=== PATIENT | male | born 1960 | race Caucasian/White ===

== ENCOUNTER 2020-04-10 09:47 | Day surgery (SDC) | payer BC ==
[~2020-04-10 09:47] MED LIST: LACTATED RINGERS 1,000 ML IV SCH; LIDOCAINE 1% (10MG/ML) FOR IV START INTRADERMA PRN
[2020-04-10 10:11] VITALS: TEMP 97.1
[2020-04-10] MEDS ORDERED: PROPOFOL 10 MG/ML 20 ML VIAL IV ONE (11:20)
--- NOTE | 2020-04-10 11:42 | P.OP ---
Date of Procedure: 04/10/20 Preoperative Diagnosis: Screening colonoscopy Postoperative Diagnosis: Mild diverticulosis Procedure(s) Performed: Colonoscopy Anesthesia: AUGUSTIN Surgeon: Ronald Celestin Pathology: none sent Condition: stable Disposition: PACU Description of Procedure: The patient's placed on the endoscopy table in the lateral position. He received IV sedation. Digital rectal exam is performed which revealed no abnormalities. The flexible colonoscope was then placed patient anus passed throughout the entire colon. The ileocecal valve was visualized. Cecum, ascending and transverse colon appeared normal. In the descending and sigmoid colon there is mild diverticulosis. The scope was then brought back the rectum and this appeared normal. Scope was withdrawn for patient.
--- NOTE | 2020-04-10 11:42 | P.GSHP ---
History of Present Illness H&P Date: 04/10/20 Chief Complaint: Screen colonoscopy 's is a 51-year-old male who presents today for screening colonoscopy. Patient denies any significant GI contents. Past Medical History Past Medical History: Hyperlipidemia, Hypertension History of Any Multi-Drug Resistant Organisms: None Reported Past Surgical History: Hernia Repair Past Anesthesia/Blood Transfusion Reactions: No Reported Reaction Smoking Status: Current every day smoker Medications and Allergies Home Medications Medication Instructions Recorded Confirmed Type Atorvastatin Calcium [Lipitor] 20 mg PO HS 04/06/20 04/06/20 History Losartan Potassium 100 mg PO HS 04/06/20 04/06/20 History Multivitamins, Thera [Multivitamin 1 tab PO DAILY 04/06/20 04/06/20 History (formulary)] [place]-3 Fatty Acids/Fish Oil [Fish 1 each PO DAILY 04/06/20 04/06/20 History Oil 1,000 mg Softgel] hydroCHLOROthiazide 25 mg PO DAILY 04/06/20 04/06/20 History Allergies Allergy/AdvReac Type Severity Reaction Status Date / Time No Known Allergies Allergy Verified 04/06/20 16:02 Surgical - Exam Vital Signs Temp Pulse Resp BP Pulse Ox 97.1 F L 74 18 150/86 98 04/10/20 10:09 04/10/20 10:09 04/10/20 10:09 04/10/20 10:09 04/10/20 10:09 - General well developed, well nourished, no distress - Eyes PERRL - ENT normal pinna - Neck no masses - Respiratory normal expansion - Cardiovascular Rhythm: regular - Abdomen Abdomen: soft, non tender Assessment and Plan Assessment: We'll perform screening colonoscopy
[2020-04-10 11:57] VITALS: BP 123/77; PULSE 70; RESP 14
== END 2020-04-10 12:12 ==
LOC: ORWHC2ENDO 09:47
PROVIDERS: ATTEND Surgery
DX: Z12.11 Encounter for screening for malignant neoplasm of colon (principal); K57.30 Diverticulosis of large intestine without perforation or abscess without bleeding; E78.5 Hyperlipidemia, unspecified; I10 Essential (primary) hypertension; Z98.890 Other specified postprocedural states; Z97.2 Presence of dental prosthetic device (complete) (partial); F17.210 Nicotine dependence, cigarettes, uncomplicated; Z79.899 Other long term (current) drug therapy
CPT/HCPCS: J2704; G0121

== ENCOUNTER → 2021-04-07 | Outpatient (CLI) | payer BC ==
--- NOTE | 2021-04-08 07:48 | CTL ---
EXAMINATION TYPE: CT Low Dose Lung DATE OF EXAM ORDERED: 04/07/2021 HISTORY: Long-term tobacco use. Lung cancer screening CT DLP: 123.[address] CTDI: 3.4 mGy Automated exposure control for dose reduction was used. SCREENING VISIT: Baseline COMPARISON: None TECHNIQUE: Low dose computed tomography scan was performed through the chest at 1 mm thick sections a nd reconstructed images in multiple planes at 1 mm and [address] DIAGNOSTIC QUALITY: Satisfactory FINDINGS: LUNG NODULES: Present, detailed below: There is 4.2 x 3.8 mm peripheral right upper lobe nodule axial image 99. Few additional scattered micronodules. No greater than 5 mm noncalcified nodules. LUNGS: COPD: Severity: Mild to moderate Fibrosis: Severity: None Lymph nodes: No greater than 1 cm Other findings: Ascending aorta measures up to 3.7 cm in diameter axial image 30 RIGHT PLEURAL SPACE: Effusion: None Calcification: None Thickening: None Pneumothorax: None LEFT PLEURAL SPACE: Effusion: None Calcification: None Thickening: None Pneumothorax: None HEART: Heart Size: Normal Coronary calcification: Mild to moderate Pericardial effusion: None OTHER FINDINGS: Upper abdomen: None Bony thorax: Mild to moderate multilevel spurring Supraclavicular region: None Other: None IMPRESSION: Mild to moderate emphysematous change with few scattered small nodules up to [address] LUNG RAD AND CT CHEST RECOMMENDATION: Lung-Rad 2 Benign Appearance or Behavior: Continue annual sc reening with LDCT in 12 months. S Modifier (other clinically significant findings): None
== END | disposition home or self-care (01) ==
LOC: RADCTMAIN 18:18
PROVIDERS: ATTEND Family Medicine
DX: J43.9 Emphysema, unspecified (principal)
CPT/HCPCS: 71271

== ENCOUNTER → 2022-05-18 | Outpatient (CLI) | payer BC ==
--- NOTE | 2022-05-19 06:45 | CTL ---
EXAMINATION TYPE: CT Low Dose Lung DATE OF EXAM ORDERED: 05/18/2022 HISTORY: Long-term tobacco use. Lung cancer screening CT DLP: 138.[address] CTDI: 3.7 mGy Automated exposure control for dose reduction was used. SCREENING VISIT: First study after baseline COMPARISON: Prior study April 07, 2021 TECHNIQUE: Low dose computed tomography scan was performed through the chest at 1 mm thick sections a nd reconstructed images in multiple planes at 1 mm and [address] DIAGNOSTIC QUALITY: Satisfactory FINDINGS: LUNG NODULES: Present, detailed below: Few scattered small nodules, some reference nodules noted as detailed below. Stable 6 x 3 mm right mid lung nodule along the fissure axial image 144. Stable 4 mm peripheral right upper lobe nodule axial image 99. No significant new or enlarging greater than 5 mm pulmonary nodules. LUNGS: COPD: Severity: Mild Fibrosis: Severity: None Lymph nodes: None Other findings: None RIGHT PLEURAL SPACE: Effusion: None Calcification: None Thickening: None Pneumothorax: None LEFT PLEURAL SPACE: Effusion: None Calcification: None Thickening: None Pneumothorax: None HEART: Heart Size: Normal Coronary Calcification: Mild to moderate Pericardial Effusion: None OTHER FINDINGS: Upper abdomen: None Bony thorax: Mild multilevel spurring Supraclavicular region: None Other: None IMPRESSION: No significant new or enlarging greater than [address] LUNG RAD AND CT CHEST RECOMMENDATION: Lung-Rad 2 Benign Appearance or Behavior: Continue annual sc reening with LDCT in 12 months. S Modifier (other clinically significant findings): None
== END | disposition home or self-care (01) ==
LOC: RADCTMAIN 18:40
PROVIDERS: ATTEND Family Medicine
DX: Z12.2 Encounter for screening for malignant neoplasm of respiratory organs (principal); F17.210 Nicotine dependence, cigarettes, uncomplicated
CPT/HCPCS: 71271

== ENCOUNTER → 2023-05-19 | Outpatient (CLI) | payer BC ==
--- NOTE | 2023-05-21 09:39 | CTL ---
EXAMINATION TYPE: CT Low Dose Lung DATE OF EXAM ORDERED: 05/19/2023 HISTORY: Smoker. Lung cancer screening CT DLP: 99.3 mGycm Automated exposure control for dose reduction was used. SCREENING VISIT: Subsequent COMPARISON: 05/18/2022 TECHNIQUE: Low dose computed tomography scan was performed through the chest at 1 mm thick sections a nd reconstructed images in the coronal plane at [address] DIAGNOSTIC QUALITY: Satisfactory FINDINGS: LUNG NODULES: None. 1. Punctate density in the periphery of the right upper lateral lung field, series 4 image 124. This is less distinct than prior. 2. Stable 0.6 x 0.3 cm nodule along the right major fissure. Image 167 LUNGS: COPD: Severity: None Fibrosis: Severity: None Lymph nodes: None Other findings: None RIGHT PLEURAL SPACE: Effusion: None Calcification: None Thickening: None Pneumothorax: None LEFT PLEURAL SPACE: Effusion: None Calcification: None Thickening: None Pneumothorax: None HEART: Heart Size: Normal Coronary calcification: Mild Pericardial effusion: None OTHER FINDINGS: Upper abdomen: Normal Bony thorax: Normal Supraclavicular region: Normal Other: Ascending thoracic aorta and main pulmonary arteries 3.6 cm. Main pulmonary artery the bifurca tion is 2.8 cm. IMPRESSION: 1. No suspicious changes for primary or metastatic neoplasm FOLLOW UP CT CHEST RECOMMENDATION: Low-dose CT chest one year CT LUNG RAD: Lung-Rad 1 Negative
== END | disposition home or self-care (01) ==
LOC: RADCTMAIN 18:47
PROVIDERS: ATTEND Family Medicine
DX: Z12.2 Encounter for screening for malignant neoplasm of respiratory organs (principal); F17.210 Nicotine dependence, cigarettes, uncomplicated
CPT/HCPCS: 71271